=== PATIENT | male | born 1970 | race Two or more races ===

== ENCOUNTER 2018-04-08 15:42 | Emergency (ER) | payer MEDICAID, OTHER ==
[~2018-04-08] VITALS: Ht 172.7 cm; Wt 77.1 kg
[2018-04-08 16:55] VITALS: BP 137/101
[2018-04-08] MEDS ORDERED: ACETAMINOPHEN 500 MG TAB PO ONE (17:30)
[2018-04-08] MEDS ORDERED: ONDANSETRON ODT 4 MG TAB PO ONE (17:45)
== END 2018-04-08 17:45 | disposition home or self-care (01) ==
LOC: ER 15:42
DX: F20.9 Schizophrenia, unspecified (principal); F31.9 Bipolar disorder, unspecified; F17.210 Nicotine dependence, cigarettes, uncomplicated; Z76.0 Encounter for issue of repeat prescription
CPT/HCPCS: 99283; Q0162